=== PATIENT | male | born 1950 | race Caucasian/White ===

== ENCOUNTER 2020-12-08 15:56 | Emergency (ER) | payer MEDICARE, OTHER ==
[2020-12-08 16:36] LABS: HEMOGLOBIN 14.7 gm/dl (14.0-17.5); RED BLOOD COUNT 4.61 M/UL (4.20-5.50); WHITE BLOOD COUNT 9.9 K/UL (4.5-11.0)
[2020-12-08 17:02] LABS: BUN/CREATININE RATIO 20 (0-10)
[2020-12-08] MEDS ORDERED: HYDROCODON-ACE1 EAC4 PO (18:43)
[2020-12-08] MEDS ORDERED: ZOFRAN ODT 4 MG4 MG PO (18:50)
[2020-12-08] MEDS ORDERED: LODINE CAP 300300 MG PO (18:50)
== END 2020-12-08 19:33 | disposition home or self-care (01) ==
LOC: ER1 15:56
PROVIDERS: Pain Medicine Interventional Pain Medicine
DX: S22.41XA Multiple fractures of ribs, right side, initial encounter for closed fracture (principal); S13.4XXA Sprain of ligaments of cervical spine, initial encounter; S00.93XA Contusion of unspecified part of head, initial encounter; S20.211A Contusion of right front wall of thorax, initial encounter; S30.1XXA Contusion of abdominal wall, initial encounter; I10 Essential (primary) hypertension; K21.9 Gastro-esophageal reflux disease without esophagitis; V80.010A Animal-rider injured by fall from or being thrown from horse in noncollision accident, initial encounter
CPT/HCPCS: 70450; 71260; 72125; 80053; 83690; 85025; 85610; 96374; 96375; 99284; J2270; J2405; Q9967